=== PATIENT | male | born 1950 | race Caucasian/White ===

== ENCOUNTER 2019-11-02 14:27 | Outpatient (CLI) | payer OTHER, SELFPAY ==
--- NOTE | ~2019-11-02 | CT_ITS ---
EXAMINATION: CT abdomen pelvis wo con EXAM DATE: 11/02/2019 15:22 INDICATION: Abdominal pain, benign essential microscopic hematuria. TECHNIQUE: Spiral CT of the abdomen and pelvis was performed without contrast. Axial, coronal and s agittal images were reviewed. The dose-length product (DLP) for this examination was 925.77 mGy-cm. The exposure was tailored according to patient size (auto mA exposure control), and iterative recons truction (ASIR) was used as additional dose reduction technique. There is no prior study for compari son. FINDINGS: There is mild hepatic steatosis. Adrenal glands, pancreas, spleen are unremarkable. Gallbl adder is unremarkable. No biliary obstruction. There is a 4 mm stone in the mid aspect of the right ureter causing mild right-sided hydronephrosis and perinephric fat stranding. There are 4 other smal ler right calyceal stones and 6 smaller left calyceal stones. There is mild prostatomegaly. The camila dder is unremarkable. There is no retroperitoneal or pelvic lymphadenopathy. There is mild scatter ed arteriosclerotic disease. Small bilateral inguinal fat-containing hernias. Nonspecific delmar mesen jessica appearance without mass or lymphadenopathy. The appendix is normal. The stomach and small bowel are unremarkable. There is moderate sigmoid colo roxana diverticulosis. There is no adjacent inflammatory change to suggest diverticulitis. No free int raperitoneal gas. The heart is normal in size. There are no pericardial or pleural effusions. The re is 5 mm right middle lobe nodule on image 8. Some other linear basilar regions of scarring/atelect asis. There are no osteoblastic or osteolytic lesions identified. There is right femoral intramedull hetal raul. IMPRESSION: 1. Right mid ureteral 4 mm stone, mild obstructive nephropathy. 2. Lateral nephrolithiasis. 3. Moderate sigmoid diverticulosis. 4. Hepatic steatosis. 5. Right middle lobe 5 mm nodule statistically most likely postinfectious. Consider 6-12 month follo w-up low-dose chest CT. Reviewed, dictated and finalized at location A. OLL ACCOUNTING CLERK IMPRESSION: 1. Right mid ureteral 4 mm stone, mild obstructive nephropathy. 2. Lateral nephrolithiasis. 3. Moderate sigmoid diverticulosis. 4. Hepatic steatosis. 5. Right middle lobe 5 mm nodule statistically most likely postinfectious. Con maternity nurse 6-12 month follow-up low-dose chest CT.
== END 2019-11-02 14:28 | disposition home or self-care (01) ==
LOC: ANHIMG 14:35
PROVIDERS: PCP Internal Medicine; Visit Provider Nurse Practitioner Family
DX: R10.9 Unspecified abdominal pain (principal); R31.1 Benign essential microscopic hematuria; N20.2 Calculus of kidney with calculus of ureter; K57.30 Diverticulosis of large intestine without perforation or abscess without bleeding; K76.0 Fatty (change of) liver, not elsewhere classified; R91.1 Solitary pulmonary nodule
CPT/HCPCS: 74176

== ENCOUNTER 2019-11-06 11:17 | Outpatient (CLI) | payer OTHER, SELFPAY ==
--- NOTE | ~2019-11-06 | XR_ITS ---
EXAMINATION: XR abdomen/kub 1V DATE: 11/06/2019 11:48 INDICATION: Right ureteral stone TECHNIQUE: A supine view of the abdomen on 2 radiographs was obtained. COMPARISON: CT dated 11/02/2019 and 11/06/2019 FINDINGS: A few small stones are seen projecting over the lower pole of the left kidney. Stones seen on CT in t he right kidney are not clearly visualized likely obscured by superimposed stool and gas in the colon . The stone in the mid right ureter is not clearly visualized likely projecting over the region of a pseudoarthrosis between the right side of the sacralized L5 segment and the right sacral ala. More cl early visualized riblets as seen in the left hemipelvis. No dilated bowel to suggest obstruction. Vis ualized lung bases are clear. IMPRESSION: 1. A few of the small stones in the left kidney are visible on the plain radiograph. Stones in the ri ght kidney and right ureter seen on prior and subsequent CT studies are unable to be definitively erin ntified. Reviewed, dictated and finalized at location A. STANT PROFESSOR OF MARINE BIOLOGY IMPRESSION: 1. A few of the small stones in the left kidney are visible on the plain radiog raph. Stones in the right kidney and right ureter seen on prior and subsequent CT studies are unable to be definitively identified.
--- NOTE | ~2019-11-06 | CT_ITS ---
EXAMINATION: CT abdomen pelvis wo con DATE: 11/06/2019 12:13 INDICATION: Right ureteral stone. TECHNIQUE: Computed tomography (CT) of the abdomen and pelvis was performed without intravenous contr ast. Automated exposure control and iterative reconstruction technique were employed. The dose-length product was 978.62 mGy-cm. COMPARISON: CT abdomen and pelvis 11/02/2019 FINDINGS: The visualized portions of the lung bases demonstrate mild atelectasis. There is a 6 mm nod ule in right middle lobe. There are 4 mm and 4 mm nodules in right lower lobe. There is a 7 mm nodule at right major fissure. No pleural effusion. The heart size is normal. There are coronary artery meliza cifications. No pericardial effusion. There is diffuse hepatic steatosis. The gallbladder, spleen, pa ncreas, and adrenal glands are normal. There are 4 stones in right kidney measuring up to 3 mm. There is mild right hydronephrosis and hydroureter. There is a 4 mm stone in proximal right ureter. There is a 12 mm mass of left kidney upper pole measuring soft tissue attenuation. There is a 7 mm cyst in left kidney. There are 7 stones in left kidney measuring up to 3 mm. The prostate is moderately enlar ged. There is diverticulosis of the colon without evidence of diverticulitis. The appendix is normal. Again seen is fat stranding at the root of the small bowel mesentery, which may be edema or inflamma tion. There are no pathologically enlarged lymph nodes. There is no free intraperitoneal fluid. There is severe lumbar spondylosis and mild thoracic spondylosis. IMPRESSION: 1. 4 mm stone in proximal right ureter with mild right hydronephrosis and hydroureter. 2. Bilateral nonobstructing kidney stones. 3. 12 mm left kidney mass, which may be a hemorrhagic cyst or less likely a solid neoplasm. Abdomen C T without and with contrast is recommended. 4. Small pulmonary nodules, probably benign. Noncontrast low-dose chest CT is recommended in 6 months . 5. Fat stranding at the root of the small bowel mesentery, which may be edema or inflammation (mesent sherice panniculitis). Reviewed, dictated and finalized at location A. UNITY EDUCATION SPECIALIST IMPRESSION: 1. 4 mm stone in proximal right ureter with mild right hydronephrosis and hydro ureter. 2. Bilateral nonobstructing kidney stones. 3. 12 mm left kidney mass, which may be a hemorrhagic cyst or less likely a bryce id neoplasm. Abdomen CT without and with contrast is recommended. 4. Small pulmonary nodules, probably benign. Noncontrast low-dose chest CT is r ecommended in 6 months. 5. Fat stranding at the root of the small bowel mesentery, which may be edema o r inflammation (mesenteric panniculitis).
== END 2019-11-06 11:18 | disposition home or self-care (01) ==
PROVIDERS: PCP Internal Medicine; Visit Provider Urology
DX: N20.2 Calculus of kidney with calculus of ureter (principal); R91.8 Other nonspecific abnormal finding of lung field
CPT/HCPCS: 74018; 74176

== ENCOUNTER 2019-11-08 13:39 | Outpatient (CLI) | payer OTHER, SELFPAY ==
[2019-11-08 14:40] LABS: Add Urine Microscopic? YES; Appearance Urine Clear (Clear); Bilirubin Urine Negative (Negative); Blood Urine 2+ (Negative); Color Urine Yellow (Yellow); Glucose Urine UA Negative (Negative); Ketones Urine Negative (Negative); Leukocyte Esterase Ur Trace LEU/UL (Negative); Mucus Urine Moderate /lpf; Nitrate Urine Negative (Negative); Protein Urine Negative (Negative); RBC Urine >75 /hpf (0-2)
== END 2019-11-08 13:40 | disposition home or self-care (01) ==
LOC: ANHSURGERY 13:42
PROVIDERS: PCP Internal Medicine; Visit Provider Urology
DX: N20.0 Calculus of kidney (principal)
CPT/HCPCS: 81001

== ENCOUNTER 2019-11-10 01:23 | Day surgery (SDC) | payer OTHER, SELFPAY ==
[2019-11-08 11:03] VITALS: BMI 36.6
[2019-11-10] VITALS (8 sets, daily range): BP systolic 121–133; BP diastolic 76–86; PULSE 56–83; RESP 16–20; TEMP 36.3; O2SAT 97–100
--- NOTE | ~2019-11-10 | XR_ITS ---
EXAMINATION: XR retrograde pyelo w/stent RT DATE: 11/10/2019 11:42 INDICATION: Right ureteral stone. TECHNIQUE: 7 intraoperative fluoroscopic views of the abdomen and pelvis were obtained. I was not pre sent. Fluoroscopy exposure time was 25 seconds. COMPARISON: CT abdomen and pelvis 11/06/2019. FINDINGS: The right-sided retrograde pyelogram is unremarkable. The final images demonstrate a right internal ureteral stent in expected position. IMPRESSION: 1. Right internal ureteral stent in expected position. Reviewed, dictated and finalized at location A. OP ENGINEER
[2019-11-10] MEDS: LACTATED RINGERS 1,000 ML 30 ML IV CONT ×2 (09:20→11:47)
--- NOTE | 2019-11-10 09:56 | WPDANESEPPF ---
Anes - Initial Pre Proc Eval Procedure: Operation Date: 11/10/19 10:30 Proposed Procedures p Cystoscopy, Right Ureteroscopy, Right Retrograde Pyelogram, Right Stone Extraction, Right Stent Placement, - Renato Garner MD s Possible Holmium Laser Procedure - Renato Garner MD Date/Time: 11/10/19 09:56 Surgeon: Renato Garner MD Pre Op Diagnosis: Right Ureteral Calculus Patient Data Age: 69 Gender: M Height: 6 ft Weight: 122.7 kg Last Vital Signs Temp 36.3 C L 11/10/19 08:51 Pulse 81 11/10/19 08:51 Resp 20 11/10/19 08:51 BP 128/83 11/10/19 08:51 Pulse Ox 97 11/10/19 08:51 Allergies Allergy/AdvReac Type Severity Reaction Status Date / Time No Known Allergies Allergy Verified 11/10/19 09:27 Home Medications Medication Instructions Recorded Confirmed Type acetaminophen [Acetaminophen Extra 1,000 mg DAILY 11/08/19 11/10/19 History Strength] azelastine 1 spray INTRANASAL HS 11/08/19 11/10/19 History diclofenac sodium 75 mg PO DAILY 11/08/19 11/10/19 History fluticasone propionate [Flonase 2 spray INTRANASAL HS 11/08/19 11/10/19 History Allergy Relief] loratadine 10 mg PO DAILY 11/08/19 11/10/19 History multivitamin 1 tablet PO DAILY 11/08/19 11/10/19 History omega 9-fbo-xab-fish oil [Fish Oil] 1 cap PO DAILY 11/08/19 11/10/19 History omeprazole 20 mg PO DAILY 11/08/19 11/10/19 History tamsulosin [Flomax] 0.4 mg PO HS 11/08/19 11/08/19 History Patient hx anesthesia problems: none Family hx anesthesia problems: none PMFSH Past Medical History Medical History Enlarged prostate GERD (gastroesophageal reflux disease) Sleep apnea Surgical History Surgical History H/O sinus surgery Total knee replacement status Bilateral Knees Family History Family History Father , CHF No problems noted. Social History Social History Smoking status: Never smoker Alcohol intake: never Substance use: never Gender identity (if verbalized by the patient): Male Anes - Eval Final PreProcedure Day of Procedure 11/10/19 09:56 Patient weight: obese Heart: regular rate and rhythm Lungs: clear to auscultation Airway: Mallampati scale class II Neurological: alert and oriented Last oral intake: >/= 8 hours ASA classification: III Emergent: no Anesthetic plan: proceed Anesthesia type and monitoring: general LMA and standard monitoring Informed Consent: The patient's anesthetic plan and its attendant risks and benefits were discussed with the patient/family/POA. Questions were solicited and answers provided to the satisfaction of the patient/family/POA.
--- NOTE | 2019-11-10 10:24 | WPDHPUPDATE1 ---
History and Physical Update Update Date/Time: 11/10/19 10:24 History and Physical has been reviewed, including an updated exam of the patient. There are NO changes in the patient's condition. Risks, benefits, and alternatives have been discussed and questions answered. Patient agrees to proceed with procedure.
--- NOTE | 2019-11-10 10:33 | WPDHPUPDATE1 ---
History and Physical Update Update Date/Time: 11/10/19 10:33 History and Physical has been reviewed, including an updated exam of the patient. There are NO changes in the patient's condition. Risks, benefits, and alternatives have been discussed and questions answered. Patient agrees to proceed with procedure. Plan for cystoscopy with right retrograde, right ureteroscopy with possible holmium laser , stone extraction and stent placement.
[2019-11-10] MEDS: ceFAZolin 3 GM/D5W 100 ML 100 ML IVPB (10:41)
[2019-11-10] MEDS: LIDOCAINE HCL 2% GEL UROJET 10 ML PKG MUCOUS MEM (11:02)
--- NOTE | 2019-11-10 11:41 | PM.PROC ---
Procedure Note - Detailed Date of procedure: 11/10/19 Pre-op diagnosis: Right Ureteral Calculus Post-op diagnosis: same Procedure performed: Cystoscopy, right retrograde pyelogram, right ureteroscopy, holmium laser of right ureteral stone, right stone extraction, right ureteral stent placement 6 Wallisian contour Description of procedure: Patient was taken the operative suite. He was correctly identified. Given his prior right femur fracture he was positioned prior to getting anesthetic. He had no issues with that position. He was then prepped and draped in the usual sterile fashion. Twenty-two Wallisian scope was inserted into the bladder direct vision. He had a little prostatic calculus which was retrieved. Bladder itself showed no lesions. The right ureteral orifice was cannulated with a guidewire. We placed a rigid ureteral scope and visualized the stone but it was too large to retrieve in 1 piece. We could not get an adequate angle with the rigid scope. We thus exchanged it out for a flexible ureteral scope. Using a 270 micron fiber we lasered the stone into multiple pieces and retrieved them. Reinspection revealed no residual stones. Contrast was then injected to confirm placement of the stent. We had attempted to dilate the orifice but was unable to get a ureteral access sheath in place. Given this amount of manipulation we placed a 6 Wallisian contour stent with the proximal end coiled in the renal pelvis and distal end in the bladder. Bladder was drained. 2% viscous lidocaine was inserted into the urethra. We will plan on removing the stent in 2-3 weeks time as he is to do have a right knee surgery next week [facility] Surgeon: Renato Garner MD Drains: Yes Packing: No Pathology: yes Complications: No immediate complications Condition: stable Disposition: PACU
== END 2019-11-10 13:33 | disposition home or self-care (01) ==
PROVIDERS: PCP Internal Medicine; Visit Provider Urology
PROC: (CPT 52352; principal; 2019-11-10 10:30)
PROC: (CPT 52356; 2019-11-10 10:30)
DX: N20.1 Calculus of ureter (principal); N42.0 Calculus of prostate; N40.0 Benign prostatic hyperplasia without lower urinary tract symptoms; K21.9 Gastro-esophageal reflux disease without esophagitis; G47.30 Sleep apnea, unspecified; Z96.653 Presence of artificial knee joint, bilateral
CPT/HCPCS: 52356; 74420; 82365; 88300; A9270; C1769; C1894; C2617; J0131; J0690; J1100; J1885; J2405; J2704; J3010; J7120; Q9966

== ENCOUNTER 2020-02-21 08:45 | Outpatient (CLI) | payer OTHER, SELFPAY ==
--- NOTE | ~2020-02-21 | DEXA_ITS ---
Bone Density Report Name: Wilner Booth Age: 70 Sex: Male Ethnicity: White Date of : 1950 Indication: prior fracture; asthma or emphysema; Referring Provider: PHYSICIAN NOT ON STAFF Study: Bone densitometry was performed. Exam Date: February 21, 2020 Accession number: [id number] Bone Density: Region BMD T-score Z-score Classification AP Spine (L1-L4) 0.970 -1.1 -0.2 Osteopenia Femoral Neck (Left) 0.791 -1.0 0.2 Normal Total Hip (Left) 1.003 -0.2 0.5 Normal World Health Organization criteria for BMD impression classify patients as: Normal (T-score at or above -1.0), Osteopenia (T-score between -1.0 and -2.5), or Osteoporosis (T-score at or below -2.5). 10-year Fracture Risk: FRAX not reported because: Prior hip or vertebral fracture Previous Exams: Region Exam Age BMD T-score BMD Change BMD Change Date g/cm2 vs Baseline vs Previous AP Spine(L1-L4) 02/21/2020 70 0.970 -1.1 -0.018(-1.8%)# -0.018(-1.8%)# 10/30/2013 63 0.988 -0.9 Total Hip(Left) 02/21/2020 70 1.003 -0.2 -0.052(-4.9%)# -0.052(-4.9%)# 10/30/2013 63 1.055 0.1 *Denotes significance at 95% confidence level, LSC for AP Spine = 0.022 g/cm2, LSC for Total Hip = 0.027 g/cm2 Clinical Information Provided by Patient: Have had a previous hip or vertebral fracture Has had a low trauma fracture Has the following medical conditions: Asthma or Emphysema Patient maximum height was 72 No regular weight bearing exercise Impression: The patient has low bone mass, based on the Total Spine T-score. The patient has risk factors, including: previous fracture. No significant bone loss was observed. Discussion: INCREASED RISK OF FRACTURE DUE TO HISTORY OF LOW TRAUMA FRACTURE. The patient's previous fracture puts the patient at high risk of a future fracture. In untreated patients, the risk of osteoporotic fracture increases approximately two-fold for each 1.0 SD decrease in T-score. Low bone density is not the only risk factor for fracture; also consider factors such as patient's age, frailty or poor health, risk of falling, risk of injury, previous osteoporotic fracture, family history of osteoporosis, cigarette smoking, low body weight, etc. Not everyone with a low trauma fracture has osteoporosis; osteomalacia and other metabolic bone disorders should also be considered. Patients who have osteoporosis should be evaluated for specific diseases and conditions (secondary causes) that may cause or contribute to bone loss and fracture risk. National Osteoporosis Foundation (NOF) recommen
== END 2020-02-21 08:46 | disposition home or self-care (01) ==
PROVIDERS: Visit Provider Internal Medicine
DX: M97.8XXA Periprosthetic fracture around other internal prosthetic joint, initial encounter (principal); Z96.649 Presence of unspecified artificial hip joint; M85.88 Other specified disorders of bone density and structure, other site
CPT/HCPCS: 77080

== ENCOUNTER 2020-03-22 14:14 | Outpatient (CLI) | payer OTHER, SELFPAY ==
--- NOTE | ~2020-03-22 | CT_ITS ---
EXAMINATION: CT chest wo con DATE: 03/22/2020 14:39 INDICATION: Lung nodule. TECHNIQUE: Computed tomography (CT) of the chest was performed without intravenous contrast. The dose -length product was 326.55 mGy-cm. Automated exposure control and iterative reconstruction technique were employed. COMPARISON: Chest dated 12/17/2016 FINDINGS: Heart size normal. No significant pleural or pericardial effusion. Visualized aspects of th e upper abdomen are unremarkable. No thoracic lymphadenopathy. There is atherosclerosis of the coto ry arteries. There is a 7 mm right middle lobe nodule, image 65. There is a 4 mm right lower lobe nod ule, image 65. There is a 4 mm right lower lobe nodule, image 73. There is a 3 mm nodule in the right upper lobe, image 36. 5 mm nodule right upper lobe, image 40. No focal airspace consolidation. Mild emphysema. Mild thoracic spondylosis. IMPRESSION: 1. Multiple right-sided pulmonary nodules, largest in the right middle lobe measuring 7 mm. These nod ules are probably benign. Follow-up low dose CT chest in 6 months recommended. Reviewed, dictated and finalized at location A. IMPRESSION: 1. Multiple right-sided pulmonary nodules, largest in the right middle lobe lisa suring 7 mm. These nodules are probably benign. Follow-up low dose CT chest in 6 months recommended.
== END 2020-03-22 14:15 | disposition home or self-care (01) ==
PROVIDERS: Visit Provider Internal Medicine
DX: R92.8 Other abnormal and inconclusive findings on diagnostic imaging of breast (principal)
CPT/HCPCS: 71250

== ENCOUNTER 2020-09-23 08:44 | Outpatient (CLI) | payer OTHER, SELFPAY ==
--- NOTE | ~2020-09-23 | CT_ITS ---
EXAMINATION: CT chest wo con DATE: 09/23/2020 09:10 INDICATION: Lung nodule TECHNIQUE: Computed tomography (CT) of the chest was performed without intravenous contrast. The dose -length product (DLP) was 396.49 mGy-cm. Automated exposure control and iterative reconstruction tech Tran[employer] were employed. COMPARISON: 03/22/2020 FINDINGS: There is mild emphysema. Stable lung nodules measure up to 6 mm in the right middle lobe. N o new or suspicious pulmonary nodule is identified. The lungs are free of acute opacities. There is n o pleural effusion or pneumothorax. No pathologically enlarged thoracic lymph nodes are identified. T he heart size is normal. Calcified coronary artery stenosis is noted. There is mild thoracic spondylo sis. IMPRESSION: 1. Stable lung nodules, likely old granulomatous disease. Follow-up CT in 12-18 months is recommended . Reviewed, dictated and finalized at location A. E RECORDER IMPRESSION: 1. Stable lung nodules, likely old granulomatous disease. Follow-up CT in 12-18 months is recommended.
== END 2020-09-23 08:45 | disposition home or self-care (01) ==
LOC: ANHIMG 08:53
PROVIDERS: Visit Provider Internal Medicine
DX: R91.1 Solitary pulmonary nodule (principal)
CPT/HCPCS: 71250

== ENCOUNTER 2021-12-18 02:24 | Day surgery (SDC) | payer OTHER, SELFPAY ==
[2021-12-09 12:28] VITALS: BMI 38.0
[2021-12-18] MEDS: LACTATED RINGERS 1,000 ML 150 ML IV CONT (06:39)
[2021-12-18 07:03] VITALS: BP 134/91; PULSE 80; RESP 17; TEMP 36.4; O2SAT 98
--- NOTE | 2021-12-18 07:03 | WPDANESEPPF ---
Anes - Initial Pre Proc Eval Procedure: Operation Date: 12/18/21 07:30 Proposed Procedures p Esophagogastroduodenoscopy - Carlos Saunders MD Date/Time: 12/18/21 07:03 Surgeon: Carlos Saunders MD Pre Op Diagnosis: GERD Patient Data Age: 71 Gender: M Height: 1.83 m Weight: 128 kg Allergies Allergy/AdvReac Type Severity Reaction Status Date / Time No Known Allergies Allergy Verified 12/18/21 06:25 Home Medications Medication Instructions Recorded Confirmed Type azelastine 1 spray INTRANASAL HS 11/08/19 12/09/21 History diclofenac sodium 75 mg PO DAILY 11/08/19 12/09/21 History fluticasone propionate [Flonase 2 spray INTRANASAL HS 11/08/19 12/09/21 History Allergy Relief] loratadine [Claritin Liqui-Gel] 10 mg PO DAILY 11/08/19 12/09/21 History multivitamin 1 tablet PO DAILY 11/08/19 12/09/21 History omega 6-cxw-msp-fish oil [Fish Oil] 1 cap PO DAILY 11/08/19 12/09/21 History omeprazole 20 mg PO DAILY 11/08/19 12/09/21 History tamsulosin [Flomax] 0.4 mg PO HS 11/08/19 12/09/21 History acetaminophen 650 mg 650 mg PO Q12H PRN 12/03/21 12/09/21 History tablet,extended release apple cider gummies 1 tab-cap PO 12/03/21 History dicyclomine 10 mg capsule 10 mg PO TID 12/03/21 12/09/21 History finasteride 5 mg tablet 5 mg PO DAILY 12/03/21 12/09/21 History hyoscyamine sulfate 0.125 mg 0.125 mg SUBLINGUAL TID PRN #14 12/03/21 12/09/21 Rx sublingual tablet tablet tadalafil 5 mg tablet 5 mg PO DAILY 12/03/21 12/09/21 History Patient hx anesthesia problems: none Family hx anesthesia problems: none Results Review: All pre-operative results and documents have been reviewed as part of the pre-operative evaluation. [facility] Past Medical History Medical History (Updated 12/18/21 @ 07:03 by Peng Pham MD) Enlarged prostate GERD (gastroesophageal reflux disease) Obesity Sleep apnea Surgical History Surgical History H/O sinus surgery Total knee replacement status Bilateral Knees Family History Family History Father , CHF No problems noted. Social History Social History Smoking status: Never smoker Alcohol intake: never Substance use: never Living arrangements: with family Gender identity (if verbalized by the patient): Male Anes - Eval Final PreProcedure Day of Procedure 12/18/21 07:03 Patient weight: obese Heart: regular rate and rhythm Lungs: clear to auscultation Airway: Mallampati scale class II Neurological: alert and oriented Last oral intake: >/= 8 hours ASA classification: III Emergent: no Anesthetic plan: proceed Anesthesia type and monitoring: general GIVS and standard monitoring Results Review: All pre-operative results and documents have been reviewed as part of the pre-operative evaluation. Informed Consent: The patient's anesthetic plan and its attendant risks and benefits were discussed with the patient/family/POA. Questions were solicited and answers provided to the satisfaction of the patient/family/POA.
--- NOTE | 2021-12-18 07:29 | WPDHPUPDATE1 ---
History and Physical Update Update Date/Time: 12/18/21 07:29 History and Physical has been reviewed, including an updated exam of the patient. There are NO changes in the patient's condition. Risks, benefits, and alternatives have been discussed and questions answered. Patient agrees to proceed with procedure.
[2021-12-18 07:44] VITALS: BP 100/65; PULSE 71; RESP 21; O2SAT 92
[2021-12-18 07:54] VITALS: BP 101/70; PULSE 66; RESP 20; O2SAT 93
[2021-12-18 08:04] VITALS: BP 97/69; PULSE 63; RESP 21; O2SAT 94
== END 2021-12-18 08:13 | disposition home or self-care (01) ==
PROVIDERS: Visit Provider Internal Medicine Gastroenterology
PROC: 0DJ08ZZ Inspection of Upper Intestinal Tract, Via Natural or Artificial Opening Endoscopic (ICD-10-PCS; CPT 43235; principal; 2021-12-18 07:30)
DX: K21.9 Gastro-esophageal reflux disease without esophagitis (principal); G47.30 Sleep apnea, unspecified; N40.0 Benign prostatic hyperplasia without lower urinary tract symptoms; E66.9 Obesity, unspecified; Z68.38 Body mass index [BMI] 38.0-38.9, adult
CPT/HCPCS: 43239; 87081; J2704; J7120

== ENCOUNTER 2022-06-25 07:47 | Outpatient (CLI) | payer OTHER, SELFPAY ==
--- NOTE | 2022-06-25 08:00 | ECG_ITS ---
Measurements Intervals [place] Rate: 81 P: 38 [place]: 158 QRS: -35 QRSD: 97 T: 9 QT: 354 QTc: 412 Interpretive Statements SINUS RHYTHM LEFT AXIS DEVIATION BASELINE ARTIFACT- I, III, AVR, AVL, AVF BORDERLINE ECG NO PREVIOUS ECG AVAILABLE FOR COMPARISON Electronically Signed On 06-25-2022 10:21:28 CDT by Jignesh Santillan D.O.
[2022-06-25 08:43] LABS: Anion Gap 12 mmol/L (8-16); Blood Urea Nitrogen 19 mg/dL (9-20); Carbon Dioxide 22 mmol/L (22-30); Chloride 106 mmol/L (98-107); Estimated Glomerular Filt Rate > 60; Glucose 118 mg/dL (65-110); Potassium 4.2 mmol/L (3.4-5.0); Sodium 140 mmol/L (137-145)
[2022-06-25 08:48] LABS: INR 1.1; Prothrombin Time 13.6 Seconds (11.1-14.7)
[2022-06-25 08:49] LABS: Partial Thromboplastin Time 25.7 SECONDS (22.3-36.8)
[2022-06-25 08:51] LABS: Basophils Percent Auto 0.4 % (0.2-1.2); Eosinophils Absolute Auto 0.2 K/mm3 (0-0.3); Eosinophils Percent Auto 2.5 % (0-4.4); Hematocrit 46.9 % (42.0-52.0); Immature Granulocyte Absolute 0.03 K/mm3 (0.00-0.031); Immature Granulocyte Percent A 0.4 % (0-0.5); Lymphocytes Absolute Auto 1.25 K/mm3 (0.9-3.2); Lymphocytes Percent Auto 14.7 % (18.3-44.2); Mean Corpuscular Hemoglobin 27.9 pg (26-34); Mean Corpuscular Volume 87.2 fl (80-100); Monocytes Absolute Auto 0.6 K/mm3 (0.1-0.6); Monocytes Percent Auto 7.4 % (2.6-8.5); Neutrophils Absolute Auto 6.4 K/mm3 (1.3-6.7); Neutrophils Percent Auto 74.6 % (45.5-73.1); Platelet Count Result 225 k/mm3 (150-375); Red Blood Count 5.38 M/mm3 (4.6-6.20); Red Cell Distribution Width 15.9 % (11.5-14.5); White Blood Count 8.5 K/mm3 (4.5-10.0)
== END 2022-06-25 07:48 | disposition home or self-care (01) ==
LOC: ANHSURGERY 07:57
PROVIDERS: Visit Provider Urology
DX: Z01.818 Encounter for other preprocedural examination (principal); Z87.891 Personal history of nicotine dependence; N40.0 Benign prostatic hyperplasia without lower urinary tract symptoms
CPT/HCPCS: 36415; 80048; 85025; 85610; 85730; 87086; 93005

== ENCOUNTER 2022-06-30 00:49 | Day surgery (SDC) | payer OTHER, SELFPAY ==
--- NOTE | 2022-06-22 13:45 | PC.NURSE ---
Report to the Outpatient Waiting Room, entrance under the green pavilion located off [facility], at time __714 on date __06/30/22 . OR Time: ___914 . Time changes happen often and if your time is changed the preop area will call you the afternoon before. - You and your visitor will be asked to self-screen and do not enter if you have any COVID symptoms. - Only one visitor and NO children visitors are allowed at this time. - The patient visitor is requested to leave or wait in car when not with patient due to restrictions. - A mask is required within the hospital. Patients may have clear liquids (water, carbonated beverages, clear teas, apple juice) until 3 hours prior to surgery with a maximum of 20 ounces. - No food from midnight until time of surgery - Infants may have breast milk until 4 hours before surgery, formula 6 hours prior to surgery. - Children will be allowed to drink immediately following surgery. If applicable, please bring a bottle or sippy cup to assist with drinking. Juice, water, soda, and popsicles are readily available. For infants on formula, please bring formula the day of surgery. Pacifiers are allowed. Take the following medications with a SIP of water the morning of surgery: __NASAL SPRAY Medications to discontinue per physician _ALL VITAMINS AND SUPPLEMENTS 3 DAYS PRE OP_.DICLOFENAC PRE DR BYERS Date to take last dose_06/26/22 Please no make-up, nail bruneian, hairspray, perfume, deodorant, or body powder the day of surgery. No jewelry (including any body piercings) or valuables the day of surgery, leave them at home. Please take a shower or bath the night before, or the morning of, surgery with an antibacterial soap. Wear comfortable, loose fitting clothing. Children are encouraged to wear pajamas. - Jewelry must be removed prior to entering the operating room. Rings and piercings that are not removed may be cut off. - The hospital will not accept responsibility for valuables. - Please leave all valuables, including medications, at home the day of surgery. If you are going home after surgery, a licensed long haul truck driver must drive you home. - NO public transportation without another adult. - We recommend that an adult stay with you for 24 hours following discharge. - We also recommend that you do not drive, make important decision, drink alcoholic beverages, or take any drugs that were not prescribed by your health care provider for at least 24 hours after your discharge time. For Pediatric surgeries, we recommend two adults accompany the child home (only one inside the building at this time). Follow any additional instructions given to you from your surgeon. If you or anyone in your household have experienced Covid symptoms in the past week, please notify your surgeon or the nurse liaison at the phone number below for possible testing. Telephone instructions given to __PATIENT and asked if any additional questions and then verbalized understanding. Patient advised to call surgeon office or pre surgery nurse liaison [phone] if any additional questions.
[2022-06-22 13:55] VITALS: BMI 38.0
[2022-06-30] VITALS (17 sets, daily range): BP systolic 92–140; BP diastolic 48–87; PULSE 63–88; RESP 12–20; TEMP 35.8–36.6; O2SAT 93–100
[2022-06-30] MEDS: FAMOTIDINE 20 MG/2 ML VIAL IV PUSH (07:59)
--- NOTE | 2022-06-30 08:08 | WPDHPUPDATE1 ---
History and Physical Update Update Date/Time: 06/30/22 08:08 History and Physical has been reviewed, including an updated exam of the patient. There are NO changes in the patient's condition. Risks, benefits, and alternatives have been discussed and questions answered. Patient agrees to proceed with procedure. Proceed with transurethral resection of prostate
--- NOTE | 2022-06-30 08:09 | WPDANESEPPF ---
Anes - Initial Pre Proc Eval Procedure: Operation Date: 06/30/22 09:15 Proposed Procedures p Trans Urethral Resection Prostate - Renato Garner MD Date/Time: 06/30/22 08:09 Surgeon: Renato Garner MD Pre Op Diagnosis: BPH Patient Data Age: 72 Gender: M Height: 1.83 m Weight: 129.9 kg Allergies Allergy/AdvReac Type Severity Reaction Status Date / Time No Known Allergies Allergy Verified 06/30/22 07:54 Home Medications Medication Instructions Recorded Confirmed Type azelastine 205.5 mcg (0.15 %) 1 spray intranasal HS 11/08/19 06/30/22 History nasal spray diclofenac sodium 75 mg 75 mg PO DAILY 11/08/19 06/30/22 History tablet,delayed release fluticasone propionate 50 2 spray intranasal HS 11/08/19 06/30/22 History mcg/actuation nasal spray,suspension (Flonase Allergy Relief) loratadine 10 mg capsule (Claritin 10 mg PO DAILY 11/08/19 06/30/22 History Liqui-Gel) multivitamin 1 tablet PO DAILY 11/08/19 06/30/22 History tamsulosin 0.4 mg capsule (Flomax) 0.4 mg PO HS 11/08/19 06/30/22 History acetaminophen 650 mg 650 mg PO Q12H PRN pain 12/03/21 06/30/22 History tablet,extended release (Tylenol Arthritis Pain) finasteride 5 mg tablet (Proscar) 5 mg PO DAILY 12/03/21 06/30/22 History tadalafil 5 mg tablet 5 mg PO DAILY 12/03/21 06/30/22 History famotidine 20 mg tablet 20 mg PO DAILY 06/22/22 06/30/22 History pantoprazole 40 mg tablet,delayed 40 mg PO DAILY 06/22/22 06/30/22 History release ECG: Date of Service: 06/25/22 Procedure(s): CA 12 lead EKG Accession Number(s): [id number] cc: ~ ? Measurements Intervals? [place]? Rate: ? 81 ? P:? 38 [place]: ? 158? QRS:? -35 QRSD: ? 97 ? T:? 9 QT: ? 354? QTc:? 412? Interpretive Statements SINUS RHYTHM LEFT AXIS DEVIATION BASELINE ARTIFACT- I, III, AVR, AVL, AVF BORDERLINE ECG NO PREVIOUS ECG AVAILABLE FOR COMPARISON Electronically Signed On 06-25-2022 10:21:28 CDT by Jignesh Santillan D.O. Patient hx anesthesia problems: none Family hx anesthesia problems: none Results Review: All pre-operative results and documents have been reviewed as part of the pre-operative evaluation. [facility], [facility] Past Medical History Medical History (Updated 12/18/21 @ 07:03 by Peng Pham MD) Enlarged prostate GERD (gastroesophageal reflux disease) Obesity Sleep apnea Surgical History Surgical History H/O sinus surgery Total knee replacement status Bilateral Knees Family History Family History Father , CHF No problems noted. Social History Social History Smoking packs per day: 1 Smoking cigarettes per day: 20.0 Years smoked: 20 Smoking pack-years: 20.00 Smoking status: Never smoker Tobacco type: cigarettes Smoking end date: 10/04/69 Alcohol intake: never Substance use: never Living arrangements: with family Gender identity (if verbalized by the patient): Male Spiritual care concerns: No Anes - Eval Final PreProcedure Day of Procedure 06/30/22 08:09 Patient weight: obese Heart: regular rate and rhythm Lungs: clear to auscultation Airway: Mallampati scale class II Neurological: alert and oriented Last oral intake: >/= 8 hours ASA classification: III Emergent: no Anesthetic plan: proceed Anesthesia type and monitoring: general LMA and standard monitoring Results Review: All pre-operative results and documents have been reviewed as part of the pre-operative evaluation. Informed Consent: The patient's anesthetic plan and its att
[2022-06-30] MEDS: LACTATED RINGERS 1,000 ML 30 ML IV CONT (08:55)
[2022-06-30] MEDS: ceFAZolin 3 GM/D5W 100 ML 100 ML IVPB (09:02)
[2022-06-30] MEDS: LIDOCAINE HCL 2% GEL UROJET 10 ML PKG MUCOUS MEM (09:30)
--- NOTE | 2022-06-30 09:59 | P.OP_ITS ---
Procedure Note - Detailed Date of Procedure 06/30/22 Pre-op Diagnosis BPH Post-op Diagnosis Same Procedure Performed Transurethral resection of prostate Surgeon Renato Garner MD Anesthesia General Description of Procedure Patient is taken to the operative suite correctly identified. Once anesthesia was obtained was placed in dorsal lithotomy position and prepped draped usual sterile fashion. Twenty-four Algerian scope inserted the bladder. There was no tumors noted. Both ureteral orifices were visualized at all times of the case. Prostate was then resected from the bladder neck to the verumontanum. Hemostasis was achieved using electrocautery. Chips were retrieved and sent for path review. 2% viscous lidocaine was inserted into the urethra. Twenty- four Algerian [address] was placed with 30 cc in the balloon. This was connected to continuous bladder irrigation. Patient is taken recovery stable condition. Estimated Blood Loss 50 Drains Yes Packing No Pathology Yes Complications No immediate complications Condition Stable Disposition PACU
[2022-06-30] MEDS: fentaNYL CITRATE INJ (*CRX) 100 MCG/2 ML VIAL 25 MCG IV PUSH ×5 (11:06→12:08)
[2022-06-30 11:44] LABS: EDCOVIDSCREEN Negative (Negative)
--- NOTE | 2022-06-30 13:03 | ADMGEN ---
This patient, Wilner Booth Jr., was admitted to [facility] Surg Room 312-01. Patient/family oriented to hospital policies and general routines including ID bracelet, bed and alarms, visiting hours, pain management, procedures, bathroom and other care routines, personal items, smoking policy, room service/diet, and visiting hours. Information on how to activate the Rapid Response Team has been discussed. Patient/Family are encouraged to report perceived risks to care and to ask questions if they do not understand what they are told or what they should do.
[2022-06-30] MEDS: DEXTROSE 5%/LACTATED RINGERS 1,000 ML 125 ML IV CONT (13:19)
[2022-06-30] MEDS: HYOSCYAMINE SULFATE 0.125 MG TABLET SUBLINGUAL (13:24)
[2022-06-30] MEDS: DOCUSATE SODIUM 100 MG CAPSULE PO (18:06)
[2022-06-30] MEDS: ONDANSETRON INJ 4 MG/2 ML VIAL IV PUSH (18:07)
[2022-07-01] VITALS: BP 130/74; PULSE 74; RESP 18; TEMP 36.6; O2SAT 100
[2022-07-01 04:00] VITALS: BP 116/70; PULSE 67; RESP 18; TEMP 36.1; O2SAT 95
--- NOTE | 2022-07-01 05:07 | PC.NURSE ---
Pt very pleasant demeanor. Pt complinat with care. Pt on CBI. Pt has had 3 new bags placed over night. Pt stated that the catheter was bothering him a little bit. Pt asked for something to help sleep. Martine was called, but pt is not on her service. Pt requested that I not call Dr. Garner. Pt stated that he would be alright and just try to go to sleep on his own. Pt was reassured that it was not trouble, pt pt continued to refuse. Pt has no other complaints at this time. Will continue to monitor pt.
[2022-07-01 06:22] LABS: Anion Gap 14 mmol/L (8-16); Blood Urea Nitrogen 16 mg/dL (9-20); Carbon Dioxide 25 mmol/L (22-30); Chloride 100 mmol/L (98-107); Estimated CRCL calculation 80 ml/min; Estimated Glomerular Filt Rate > 60; Glucose 165 mg/dL (65-110); Potassium 3.9 mmol/L (3.4-5.0); Sodium 139 mmol/L (137-145)
[2022-07-01 06:24] LABS: Hematocrit 43.8 % (42.0-52.0); Hemoglobin 13.8 g/dL (14.0-18.0)
[2022-07-01 08:00] VITALS: BP 136/80; PULSE 70; RESP 16; TEMP 36.5; O2SAT 97
[2022-07-01] MEDS: DOCUSATE SODIUM 100 MG CAPSULE PO (08:38)
[2022-07-01] MEDS: CEPHALEXIN 500 MG CAPSULE PO ×2 (08:38→12:39)
[2022-07-01] MEDS: LORATADINE 10 MG TABLET PO (08:38)
--- NOTE | 2022-07-01 08:59 | WPDANESPN ---
Anes - Prog Note Post-Op Date/Time: 07/01/22 08:59 Cardiovascular status: normal Respiratory status: normal Airway patency: baseline Mental status: baseline Post-Op hydration status: normal Vital Signs: Last Vital Signs Temp 97.7 F 07/01/22 08:00 Pulse 70 07/01/22 08:00 Resp 16 07/01/22 08:00 BP 136/80 07/01/22 08:00 Pulse Ox 97 07/01/22 08:00 O2 Del Method Room Air 07/01/22 07:58 O2 Flow Rate 8 06/30/22 10:15 Pain Score (VAS): 0/10 I/O: Intake & Output 06/30/22 07/01/22 07/01/22 23:59 07:59 15:59 Intake Total 500 50 480 Output Total 550 Balance -50 50 480 Laboratory Tests 07/01/22 05:22 07/01/22 05:23 06/30/22 07/01/22 07/01/22 11:22 05:22 05:23 Hgb 13.8 L Hct 43.8 Sodium 139 Potassium 3.9 Chloride 100 Carbon Dioxide 25 Anion Gap 14 BUN 16 Creatinine 1.00 Estim Creat Clear Calc 80 Estimated GFR > 60 Glucose 165 H Calcium 9.0 SARS-CoV-2 IgG/IgM Ag?Rapid Negative Post-procedural complaints: none Patient Feedback: Patient satisfied with anesthetic care.
[2022-07-01 12:00] VITALS: BP 138/80; PULSE 70; RESP 16; TEMP 36.4; O2SAT 98
--- NOTE | 2022-07-01 12:02 | WPDUROPN2 ---
Progress Note: A&P Assessment and Plan (1) BPH (benign prostatic hyperplasia): Code(s): N40.0 - Benign prostatic hyperplasia without lower urinary tract symptoms Status: Acute Assessment and Plan: Ok to discharge home with oseguera catheter. Subjective Subjective Date/Time Seen: 07/01/22 12:02 The patient is s/p TURP with Dr. Garner yesterday. He is doing very well today and urine remains clear yellow off of CBI. He is tolerating pain and diet well. He is able to get up and sit in his chair in the room and ambulate. Post Op day: 1 Review of Systems Cardiovascular: Cardiovascular: Denies chest pain Respiratory: Respiratory: Reports no additional respiratory complaints Gastrointestinal: Gastrointestinal: Denies abdominal pain, Denies nausea and Denies vomiting Genitourinary: Genitourinary: Denies hematuria, Denies dysuria, Denies flank pain, Denies urinary frequency, Denies urinary incontinence and Denies urinary urgency Exam Const: General: cooperative Resp: Effort & Inspection: normal respiratory effort Cardio: Rate: regular rate GI: GI Palp: Yes Soft to palpation and No Tenderness to palpation present (GI) : General: Yes no CVA tenderness Urinary Catheter: Urinary Catheter: patent and draining and urine clear Back/Spine/Pelvis: Back: CVA tenderness Extrem: Right lower extremity: no edema Left lower extremity: no edema Objective Data Vital Signs Vital Signs: Vital Signs - 24 hr 06/30/22 12:15 06/30/22 12:30 06/30/22 13:10 Temperature 96.6 F L Pulse Rate 66 68 70 Respiratory Rate 14 14 20 Blood Pressure 107/75 111/80 100/75 Pulse Oximetry 95 95 96 Oxygen Delivery Room Air Room Air 06/30/22 13:25 06/30/22 13:55 06/30/22 14:55 Temperature 96.4 F L 97.3 F L 97.1 F L Pulse Rate 77 70 70 Respiratory Rate 20 20 20 Blood Pressure 130/80 140/87 120/70 Pulse Oximetry 93 98 96 Oxygen Delivery 06/30/22 20:38 06/30/22 21:59 07/01/22 00:00 Temperature 97.2 F L 97.8 F Pulse Rate 82 74 Respiratory Rate 18 18 Blood Pressure 130/74 130/74 Pulse Oximetry 96 100 Oxygen Delivery Room Air 07/01/22 04:00 07/01/22 07:58 07/01/22 08:00 Temperature 97 F L 97.7 F Pulse Rate 67 70 Respiratory Rate 18 16 Blood Pressure 116/70 136/80 Pulse Oximetry 95 97 Oxygen Delivery Room Air Intake/Output Intake/Output: Intake & Output 06/28/22 06/29/22 06/30/22 07/01/22 23:59 23:59 23:59 23:59 Intake Total 3900 530 Output Total 5350 Balance -1450 530 Meds/Results Medications: Active Medications Generic Name Dose Route Start Last Admin Trade Name Freq PRN Reason Stop Dose Admin Hydrocodone Bitart/Acetaminophen 1 tab 06/30/22 12:38 Hydrocodone/Acetaminophen (*Crx) 5-325 Mg Tablet PO Q4H PRN Pain Rated 1-6 Cephalexin HCl 500 mg 07/01/22 09:00 07/01/22 08:38 Cephalexin 500 Mg Capsule PO 500 mg QID ESTEFANIA Administration Docusate Sodium 100 mg 06/30/22 17:00 07/01/22 08:38 Docusate Sodium 100 Mg Capsule PO 100 mg BID ESTEFANIA Administration Hyoscyamine 0.125 mg 06/30/22 12:38 06/30/22 13:24 Hyoscyamine Sulfate 0.125 Mg Tablet SUBLINGUAL 0.125 mg Q6H PRN Administration Bladder Spasm Loratadine 10 mg 07/01/22 09:00 07/01/22 08:38 Loratadine 10 Mg Tablet PO 10 mg DAILY ESTEFANIA Administration Morphine Sulfate 2 mg 06/30/22 12:38 Morphine Sulfate (*Crx) 2 Mg/Ml Inj IV PUSH Q2H PRN Pain Rated 7-10 Naloxone HCl 0.1 mg 06/30/22 12:38 Naloxone Hcl 0.4 Mg/Ml Vial IV PUSH Q2M PRN Opiate Reversal Ondansetron HCl 4 mg 06/30/22 12:38 06/30/22 18:07 Ondansetron Inj 4 Mg/2 Ml Vial IV PUSH 4 mg Q12H PRN Administration Nausea And Vomiting Labs Labs: Laboratory Results - last 24 hr 07/01/22 07/01/22 05:22 05:23 Hgb 13.8 L Hct 43.8 Sodium 139 Potassium 3.9 Chloride 100 Carbon Dioxide 25 Anion Gap 14 BUN 16 Creatinine 1
== END 2022-07-01 13:20 | disposition home or self-care (01) ==
LOC: ANHSURGERY 07:09 → ANH3MEDSUR 12:40
PROVIDERS: Visit Provider Urology
PROC: 0VT08ZZ Resection of Prostate, Via Natural or Artificial Opening Endoscopic (ICD-10-PCS; CPT 52601; principal; 2022-06-30 09:15)
DX: N40.1 Benign prostatic hyperplasia with lower urinary tract symptoms (principal); R35.1 Nocturia; R39.12 Poor urinary stream; K21.9 Gastro-esophageal reflux disease without esophagitis; G47.30 Sleep apnea, unspecified; E66.9 Obesity, unspecified; Z68.38 Body mass index [BMI] 38.0-38.9, adult
CPT/HCPCS: 52601; 36415; 80048; 85014; 85018; 85025; 85610; 85730; 87086; 87426; 88305; 93005; A9270; C9803; J0690; J1100; J2405; J2704; J3010; J7120; J7121

== ENCOUNTER 2022-07-03 13:30 | Emergency (ER) | payer OTHER, SELFPAY ==
[2022-07-03 13:32] VITALS: BP 164/82; PULSE 107; RESP 20; TEMP 36.2; O2SAT 100
--- NOTE | 2022-07-03 14:06 | ED.MALEGU ---
HPI - Male Genitourinary General Chief complaint: Urogenital-Male Stated complaint: swelling to penis Time Seen by Provider: 07/03/22 13:59 Source: patient Mode of arrival: ambulatory Limitations: no limitations History of Present Illness HPI Narrative: 72 years old white male status post TURP 4 days ago. Patient been not able to and retract the foreskin since his surgery until now. Woke up this morning with swelling of the foreskin at the bottom of the penis. He denies any fever, chills, nausea, vomiting. Related Data Home Medications Medication Instructions Recorded Confirmed azelastine 205.5 mcg (0.15 %) 1 spray intranasal HS 11/08/19 06/30/22 nasal spray diclofenac sodium 75 mg 75 mg PO DAILY 11/08/19 06/30/22 tablet,delayed release fluticasone propionate 50 2 spray intranasal HS 11/08/19 06/30/22 mcg/actuation nasal spray,suspension (Flonase Allergy Relief) loratadine 10 mg capsule (Claritin 10 mg PO DAILY 11/08/19 06/30/22 Liqui-Gel) multivitamin 1 tablet PO DAILY 11/08/19 06/30/22 tamsulosin 0.4 mg capsule (Flomax) 0.4 mg PO HS 11/08/19 06/30/22 acetaminophen 650 mg 650 mg PO Q12H PRN pain 12/03/21 06/30/22 tablet,extended release (Tylenol Arthritis Pain) finasteride 5 mg tablet (Proscar) 5 mg PO DAILY 12/03/21 06/30/22 tadalafil 5 mg tablet 5 mg PO DAILY 12/03/21 06/30/22 famotidine 20 mg tablet 20 mg PO DAILY 06/22/22 06/30/22 pantoprazole 40 mg tablet,delayed 40 mg PO DAILY 06/22/22 06/30/22 release Allergies Allergy/AdvReac Type Severity Reaction Status Date / Time No Known Allergies Allergy Verified 06/30/22 07:54 Review of Systems Review of Systems: All systems reviewed & are unremarkable except as noted in HPI and below PMFSH Past Medical History Medical History Enlarged prostate GERD (gastroesophageal reflux disease) Obesity Sleep apnea Surgical History Surgical History H/O sinus surgery Total knee replacement status Bilateral Knees Family History Family History Father , CHF No problems noted. Social History Social History Smoking packs per day: 1 Smoking cigarettes per day: 20.0 Years smoked: 13 Smoking pack-years: 13.00 Smoking status: Former smoker Alcohol intake: never Substance use: never Gender identity (if verbalized by the patient): Male Spiritual care concerns: No Exam Narrative: General appearance: Well-developed, well-nourished Skin: Normal color Chest and respiratory: Airway patent, no respiratory distress, no accessory muscle use Heart: Regular rate/rhythm Abdomen: Soft, nontender, no organomegaly, quiet bowel sounds, genital exam showed edematous of the foreskin, unable to UN retracted Vascular: Normal peripheral pulses, normal capillary refill. Musculoskeletal: Normal range of motion, nontender back Neurologic: Alert and oriented ?3, BIT SHARPENER is normal as tested, no gross motor deficit Course Reevaluation(s) Reevaluation #1: Dr. Garner came to the emergency room and was able to manage to squeeze the edematous foreskin and pull it on the glans with success. Patient feels much better and ready to go home Date: 07/03/22 Time: 14:31 Vital Signs Vital signs: Vital Signs Temperature 36.2 C L 07/03/22 13:32 Pulse Rate 107 H 07/03/22 13:32 Respiratory Rate 20 07/03/22 13:32 Blood Pressure 164/82 H 07/03/22 13:32 Pulse Oximetry 100 07/03/22 13:32 Temperature 36.2 C L 07/03/22 13:32 Pulse Rate
--- NOTE | 2022-07-03 14:21 | WPDURCON ---
Assessment and Plan Assessment and plan (1) Paraphimosis: Code(s): N47.2 - Paraphimosis Status: Acute Assessment and Plan: Paraphimosis was reduced at the bedside and the foreskin was pulled over the head of the penis. I instructed him to keep a close eye on this. He can apply some ice when he gets home. He will continue with this Bowser catheter removal on Wednesday next week. Urology Consult Note HPI Date Seen: 07/03/22 Time Seen: 14:21 Requesting Physician: The emergency room Primary Care Provider: Faustino Boo, Consult Narrative Reason for consult: Penile swelling Narrative: Wilner Booth Jr. is a 72 year old male who is known to me and had a transurethral section of his prostate on Wednesday of last week. Patient is uncircumcised then developed some swelling this morning. He was concerned and came to the emergency room. He currently has an indwelling Bowser catheter draining pinkish colored urine. Denies any fevers chills nausea vomiting. Review of Systems Review of Systems: All systems reviewed & are unremarkable except as noted in HPI and below PMFSH Past Medical History Medical History Enlarged prostate GERD (gastroesophageal reflux disease) Obesity Sleep apnea Surgical History Surgical History H/O sinus surgery Total knee replacement status Bilateral Knees Family History Family History Father , CHF No problems noted. Social History Social History Smoking packs per day: 1 Smoking cigarettes per day: 20.0 Years smoked: 13 Smoking pack-years: 13.00 Smoking status: Former smoker Alcohol intake: never Substance use: never Gender identity (if verbalized by the patient): Male Spiritual care concerns: No Meds Home Medications and Allergies Home Medications Medication Instructions Recorded Confirmed Type azelastine 205.5 mcg (0.15 %) 1 spray intranasal HS 11/08/19 06/30/22 History nasal spray diclofenac sodium 75 mg 75 mg PO DAILY 11/08/19 06/30/22 History tablet,delayed release fluticasone propionate 50 2 spray intranasal HS 11/08/19 06/30/22 History mcg/actuation nasal spray,suspension (Flonase Allergy Relief) loratadine 10 mg capsule (Claritin 10 mg PO DAILY 11/08/19 06/30/22 History Liqui-Gel) multivitamin 1 tablet PO DAILY 11/08/19 06/30/22 History tamsulosin 0.4 mg capsule (Flomax) 0.4 mg PO HS 11/08/19 06/30/22 History acetaminophen 650 mg 650 mg PO Q12H PRN pain 12/03/21 06/30/22 History tablet,extended release (Tylenol Arthritis Pain) finasteride 5 mg tablet (Proscar) 5 mg PO DAILY 12/03/21 06/30/22 History tadalafil 5 mg tablet 5 mg PO DAILY 12/03/21 06/30/22 History famotidine 20 mg tablet 20 mg PO DAILY 06/22/22 06/30/22 History pantoprazole 40 mg tablet,delayed 40 mg PO DAILY 06/22/22 06/30/22 History release cephalexin 500 mg capsule 500 mg PO BID #10 caps 07/01/22 Rx docusate sodium 100 mg capsule 100 mg PO BID #10 caps 07/01/22 Rx hydrocodone 5 mg-acetaminophen 325 1 tablet PO Q6H PRN pain #20 tabs 07/01/22 Rx mg tablet hyoscyamine sulfate 0.125 mg 0.125 mg sublingual Q6H PRN 07/01/22 Rx disintegrating tablet (Anaspaz) Bladder Spasm #20 tabs Allergies Allergy/AdvReac Type Severity Reaction Status Date / Time No Known Allergies Allergy Verified 06/30/22 07:54 Vital Signs Vital Signs - 24 hr 07/03/22 13:32 Temperature 36.2 C L Pulse Rate 107 H Respiratory Rate 20 Blood Pressure 164/82 H Pulse Oximetry 100 Exam Const: General: cooperative; No comfortable Resp: Effort & Inspection: normal respiratory effort Cardio: Rate: regular rate Rhythm: regular rhythm : Penis: Yes circumcised and Yes paraphimosis
== END 2022-07-03 14:40 | disposition home or self-care (01) ==
PROVIDERS: Emergency Provider Emergency Medicine; PCP Internal Medicine
DX: N47.2 Paraphimosis (principal); G47.30 Sleep apnea, unspecified; K21.9 Gastro-esophageal reflux disease without esophagitis; E66.9 Obesity, unspecified; Z68.38 Body mass index [BMI] 38.0-38.9, adult; Z87.891 Personal history of nicotine dependence
CPT/HCPCS: 99283

== ENCOUNTER 2024-08-05 12:43 | Emergency (ER) | payer OTHER, SELFPAY ==
--- NOTE | ~2024-08-05 | XR_ITS ---
XR hand RT min 3V DATE: 08/05/2024 13:51 INDICATION: Fall. Right hand injury, pain TECHNIQUE: 4 views COMPARISON: None FINDINGS: There is a subtle virtually nondisplaced fracture of the neck of the fourth metacarpal bone which is likely recent. Recommend clinical correlation for tenderness at this site. No other recent fracture or any dislocation is noted. Polyarticular osteoarthritis is noted, particularly prominent at the second and third metacarpophalan geal joints, also involving the first carpometacarpal joint. IMPRESSION: Suspected recent virtually nondisplaced fracture at the fourth metacarpal; recommend clin ical correlation for tenderness at this site Polyarticular osteoarthritis Reviewed, dictated and finalized at location A. IMPRESSION: Suspected recent virtually nondisplaced fracture at the fourth meta carpal; recommend clinical correlation for tenderness at this site Polyarticular osteoarthritis
--- NOTE | ~2024-08-05 | XR_ITS ---
[id number] DATE: 08/05/2024 13:51 INDICATION: Right rib pain TECHNIQUE: PA chest. 4 views of right ribs COMPARISON: None FINDINGS: Normal heart size. No hilar or mediastinal enlargement. Minimal atelectasis or scarring at the lung bases. Mild loss of right lung volume compared to left. Otherwise no pulmonary infiltrate or consolidation. No pleural effusion or pulmonary vascular congest ion or pneumothorax. No right rib fracture or bone destruction is detected. IMPRESSION: Minimal atelectasis or scarring at the lung bases Reviewed, dictated and finalized at [facility]. Reviewed, dictated and finalized at location A.
--- NOTE | ~2024-08-05 | XR_ITS ---
XR hip RT 2V w AP pelvis DATE: 08/05/2024 13:51 INDICATION: Fall. Right hip injury, pain TECHNIQUE: AP pelvis. AP and lateral views of right hip. COMPARISON: None FINDINGS: Mild lumbar levoscoliosis. Multilevel degenerative disc disease, particularly on the right at L3-4. Transitional fifth vertebra with sacralization and pseudoarthrosis on the right, localization of the left. Normal alignment at the pubic symphysis and sacroiliac joints. No pelvic fracture or bone destruction. Lateral right iliac crest deformity, likely bone donor site No fracture or dislocation, avascular necrosis or bone destruction of the right hip is detected. Plat e and screws along right femoral shaft. IMPRESSION: No pelvic or right hip fracture or dislocation Reviewed, dictated and finalized at location A.
--- NOTE | ~2024-08-05 | CT_ITS ---
EXAMINATION: CT diagnostic chest wo con DATE: 08/05/2024 15:08 INDICATION: Concern for right anterolateral rib fracture TECHNIQUE: Computed tomography (CT) of the chest was performed without intravenous contrast. Automate d exposure control and iterative reconstruction technique were employed. Exam dose: 675.30 mGy-cm to saba exam DLP. COMPARISON: 09/23/2020 CT chest FINDINGS: Stable previously reported 6 mm middle lobe pulmonary nodule. No pulmonary infiltrate or consolidation or significant new or developing pulmonary mass lesion is ev ident. Prominent left main and left anterior descending coronary artery calcifications. Borderline heart siz e. No thoracic aortic aneurysm. No hilar or mediastinal mass lesion or lymphadenopathy. Normal morphology of the adrenal glands. Subtle recent nondisplaced anterior right seventh and eighth rib fractures are suspected. Additional subtle nondisplaced rib fractures are not excluded. No suspicious osteolytic or osteoblastic lesions are noted. IMPRESSION: Recent nondisplaced anterior right seventh and eighth rib fractures are suspected. Addit ional subtle nondisplaced rib fractures on either side are not excluded. Reviewed, dictated and finalized at [facility]. Reviewed, dictated and finalized at location A. IMPRESSION: Recent nondisplaced anterior right seventh and eighth rib fracture s are suspected. Additional subtle nondisplaced rib fractures on either side ar e not excluded.
--- NOTE | ~2024-08-05 | CT_ITS ---
EXAMINATION: CT cervical spine wo con DATE: 08/05/2024 13:30 INDICATION: Fall with head injury TECHNIQUE: Computed tomography (CT) of the cervical spine was performed without intravenous contrast. The dose-length product was 526.14 mGy-cm. COMPARISON: None FINDINGS: Alignment is normal. Vertebral body heights are normal. No fracture. Severe disc height loss at C3-C4 , C5-C6 and C6-C7. Moderate disc height loss at C2-C3 and mild disc height loss at C4-C5 and C7-T1. S mall posterior endplate osteophytes contributing to mild central canal stenosis at C3-C4, C5-C6 and C 6-C7. Moderate to severe and uncovertebral osteoarthritis at these levels along with multilevel cervi meliza facet osteoarthritis, severe on the left at C2-C3 and C3-C4 and mild to moderate the remaining le vels. This contributes to moderate neural foraminal stenosis on the right at C5-C6, on the left at C2 -C3, C3-C4 and C6-C7. Visualized portions of the cervical soft tissues are unremarkable. Mild emphyse ma and mild dependent atelectasis in the visualized upper lungs. IMPRESSION: 1. Severe cervical spondylosis. No acute osseous abnormality. Reviewed, dictated and finalized at location A.
--- NOTE | ~2024-08-05 | XR_ITS ---
XR knee RT min 4V DATE: 08/05/2024 13:51 INDICATION: Fall. Right knee injury TECHNIQUE: 4 standing views COMPARISON: None FINDINGS: Status post ORIF of distal femoral shaft fracture: Plates and screws are noted along the me dial and lateral aspect of the femoral shaft and metaphysis. Status post right knee arthroplasty without patellar resurfacing. No recent fracture or dislocation, periosteal reaction or bone destruction is detected. No joint effu yaniv is detected. IMPRESSION: Status post ORIF distal femoral shaft fracture Status post right knee arthroplasty No recent fracture or dislocation or joint effusion is detected Reviewed, dictated and finalized at location A.
--- NOTE | ~2024-08-05 | CT_ITS ---
EXAMINATION: CT brain wo con DATE: 08/05/2024 13:30 INDICATION: Fall with head injury TECHNIQUE: Computed tomography (CT) of the head was performed without intravenous contrast. Sagittal and coronal reconstructions were performed. The mA was adjusted according to patient size. Iterative reconstruction technique was employed. The dose-length product was 605.33 mGy-cm. COMPARISON: head CT dated 07/07/2016 FINDINGS: No fracture. No acute intracranial hemorrhage, acute infarction or abnormal extra axial fluid collect ion. There is mild to moderate scattered white matter hypoattenuation consistent with chronic small v essel ischemic disease. Ventricles are normal and symmetric. No mass/mass effect. Changes of bilatera l intraocular lens replacement. The orbits, paranasal sinuses and mastoid air cells are normal. IMPRESSION: 1. No fracture or acute intracranial process. 2. Mild to moderate scattered white matter hypoattenuation consistent with chronic small vessel ische janie disease. Reviewed, dictated and finalized at location A. IMPRESSION: 1. No fracture or acute intracranial process. 2. Mild to moderate scattered white matter hypoattenuation consistent with wall covering installer roxana small vessel ischemic disease.
[2024-08-05 13:06] VITALS: BP 117/74; PULSE 73; RESP 16; TEMP 36.4; O2SAT 97
[2024-08-05] MEDS: HYDROcodone/acetaminophen (*CRX) 5-325 MG TABLET 1 TAB PO (15:08)
--- NOTE | 2024-08-05 15:08 | ED_ITS ---
HPI - Fall General Chief Complaint: Fall Stated Complaint: fall, L hand injury Time Seen by Provider: 08/05/24 14:02 History of Present Illness HPI Narrative: 74-year-old male presents to the emergency department for a mechanical fall. Patient states he was walking on uneven ground when he tripped. He landed with his right hand outstretched. States he hit his head but did not lose consciousness. He is reporting pain to the right forehead, right hand, right hip and knee. He is not anticoagulated. Denies vision changes, focal numbness or weakness, neck pain or back pain. Related Data Home Medications Medication Instructions Recorded Confirmed azelastine 205.5 mcg (0.15 %) 1 spray intranasal HS 11/08/19 06/30/22 nasal spray diclofenac sodium 75 mg 75 mg PO DAILY 11/08/19 06/30/22 tablet,delayed release fluticasone propionate 50 2 spray intranasal HS 11/08/19 06/30/22 mcg/actuation nasal spray,suspension (Flonase Allergy Relief) loratadine 10 mg capsule (Claritin 10 mg PO DAILY 11/08/19 06/30/22 Liqui-Gel) multivitamin 1 tablet PO DAILY 11/08/19 06/30/22 tamsulosin 0.4 mg capsule (Flomax) 0.4 mg PO HS 11/08/19 06/30/22 acetaminophen 650 mg 650 mg PO Q12H PRN pain 12/03/21 06/30/22 tablet,extended release (Tylenol Arthritis Pain) finasteride 5 mg tablet (Proscar) 5 mg PO DAILY 12/03/21 06/30/22 tadalafil 5 mg tablet 5 mg PO DAILY 12/03/21 06/30/22 famotidine 20 mg tablet 20 mg PO DAILY 06/22/22 06/30/22 pantoprazole 40 mg tablet,delayed 40 mg PO DAILY 06/22/22 06/30/22 release Allergies Allergy/AdvReac Type Severity Reaction Status Date / Time No Known Allergies Allergy Verified 08/05/24 13:03 Review of Systems Review of Systems: All systems reviewed & are unremarkable except as noted in HPI and below PMFSH Past Medical History Medical History Enlarged prostate GERD (gastroesophageal reflux disease) Obesity Sleep apnea Surgical History Surgical History H/O sinus surgery Total knee replacement status Bilateral Knees Family History Family History Father , CHF No problems noted. Social History Social History Smoking packs per day: 1 Smoking cigarettes per day: 20.0 Years smoked: 13 Smoking pack-years: 13.00 Smoking status: Former smoker Alcohol intake: never Substance use: never Living arrangements: with family Occupation/Education: retired Gender identity (if verbalized by the patient): Male Spiritual care concerns: No Exam Narrative: GENERAL: Well-appearing, well-nourished, and in no acute distress. HEAD: Normocephalic, atraumatic. no tenderness, step-offs or deformities, no ecchymosis or lacerations EYES: PERRLA and EOMI. ENT: Nares clear, no rhinorrhea or epistaxis. Mucous membranes moist. NECK: No midline cervical spinous tenderness, step-offs or deformities CHEST: Clear to auscultation. No respiratory distress. tenderness to the right anterior lateral ribs with no overlying skin changes, crepitus, step-offs or deformities HEART: Regular rate and rhythm. No murmur heard. Normal peripheral pulses. ABDOMEN: Soft, nontender, nondistended, normal active bowel sounds. EXTREMITIES: RUE: tenderness to the 3rd through 5th metacarpals with overlying edema. Full active and passive range of motion of fingers and wrist. No tenderness to wrist, no snuffbox tenderness. No overlying laceration wounds or abrasions. Radial pulse 2 +. Cap refill less than 2. Sensation intact. RLE: Minimal tenderness to the lateral aspect of the proximal right femur and to the lateral aspect of the distal right femur. No overlying skin changes. Full active and passive range of motion of hip and knee. DP pulses 2+. Sensation intact. Compartments are soft throughout SKIN: Warm, dry, no rash. NEURO: No focal deficits. Alert and oriented x3 . Cranial nerves 2-12 intact. Strength 5/5 BUE and BLE. Sensation intact throughout. Course Vital Signs Vital signs: Vital Signs Temperature 97.5 F L 08/05/24 13:06 Pulse Rate 73 08/05/24 13:06 Respiratory Rate 16 08/05/24 13:06 Blood Pressure 117/74 08/05/24 13:06 Pulse Oximetry 97 08/05/24 13:06 Temperature 97.5 F L 08/05/24 13:06 Pulse Rate 73 08/05/24 13:06 Respiratory Rate 16 08/05/24 13:06 Blood Pressure 117/74 08/05/24 13:06 Pulse Oximetry 97 08/05/24 13:06 MDM - Fall MDM Narrative Medical decision making narrative: 74-year-old male presents to the emergency department for a ground level mechanical fall that occurred prior to arrival. See HPI for further history. Triage vitals are stable. Exam is significant for the above. He is neurovascularly intact. CT brain and cervical spine show no acute findings. X- ray of the right knee and right hip/pelvis revealed no acute findings, hardware is in place. X-ray of the ribs reveal no acute rib fracture. Patient was persistently tender over the right anterior lateral distal ribs, therefore CT chest without contrast ordered which shows nondisplaced anterior right 7th and 8th rib fractures consistent with his exam. He has no tenderness to the remainder of his ribs, therefore additional for fractures are less likely. X- ray of the hand shows a virtually nondisplaced fracture at the 4th metacarpal which is also consistent with exam. Patient updated on workup. He was given a dose of [place] in his right hand was placed in an ulnar gutter splint. He reports improvement after [place]. He remains in respiratory distress his oxygen saturation is stable at 97%. he seems to otherwise be in good health and does not appear frail. Feel he is safe to be discharged home. He was given incentive spirometer and instructed to use this frequently to prevent complications from rib fracture. I discussed close follow-up with his PCP and hand surgeon, referral provided. Strict ED return precautions were discussed. He is agreeable with the plan verbalized understanding. Discharged in stable condition. Discharge Plan Discharge Clinical Impression: Closed fracture of fourth metacarpal bone Qualifiers: Encounter type: initial encounter Metacarpal location: unspecified portion of metacarpal Fracture alignment: nondisplaced Laterality: right Qualified Code(s): S62.304A - Unspecified fracture of fourth metacarpal bone, right hand, initial encounter for closed fracture Fracture, ribs Qualifiers: Encounter type: initial encounter Fracture type: closed Laterality: right Qualified Code(s): S22.41XA - Multiple fractures of ribs, right side, initial encounter for closed fracture Patient Disposition: Home, Self-Care Condition: Stable Instructions: Antibiotic Form, How to Use an Incentive Spirometer (ED), Hand Fracture (DC), Rib Fracture (ED), Head Injury (ED) Additional Instructions: Your evaluated in the emergency department after a ground level fall. The CT of your head and neck showed no acute findings. The x-ray of your right hip and right knee showed no broken bones. The x-ray of your right hand shows a nondisplaced 4th metacarpal fracture. Please wear the splint until you are able to follow-up with the hand surgeon. The CT scan of your ribs reveal a nondisplaced fracture of your 7th and 8th rib. Please use the incentive spirometer as directed and follow-up closely with her primary care provider. Return to the emergency department if he develops significantly worsening pain your ribs or hand, white or numb fingers, fever, cough or difficulty breathing, or other concerning symptoms. Take the pain medications as directed. Prescriptions: New hydrocodone-acetaminophen 5-325 mg tablet 1 tablet PO Q8H PRN (Reason: pain) Qty: 14 0RF No Action tadalafil 5 mg tablet 5 mg PO DAILY finasteride [Proscar] 5 mg tablet 5 mg PO DAILY acetaminophen [Tylenol Arthritis Pain] 650 mg tablet extended release 650 mg PO Q12H PRN (Reason: pain) multivitamin Tablet 1 tablet PO DAILY tamsulosin [Flomax] 0.4 mg Capsule 0.4 mg PO HS Patient Comments: TAKES TWO TABS IN AM diclofenac sodium 75 mg Tablet,Delayed Release (Dr/Ec) 75 mg PO DAILY Hold Instructions: Resume on 07/06/22. fluticasone propionate [Flonase Allergy Relief] 50 mcg/actuation [facility],Suspension 2 spray INTRANASAL HS azelastine 0.15 % (205.5 mcg) [facility],Non-Aerosol 1 spray INTRANASAL HS Claritin Liqui-Gel 10 mg Capsule 10 mg PO DAILY famotidine 20 mg tablet 20 mg PO DAILY pantoprazole 40 mg tablet,delayed release (DR/EC) 40 mg PO DAILY hyoscyamine sulfate [Anaspaz] 0.125 mg Tablet,Disintegrating 0.125 mg sublingual Q6H PRN (Reason: Bladder Spasm) Qty: 20 0RF cephalexin 500 mg Capsule 500 mg PO BID Qty: 10 0RF docusate sodium 100 mg Capsule 100 mg PO BID Qty: 10 0RF hydrocodone-acetaminophen 5-325 mg tablet 1 tablet PO Q6H PRN (Reason: pain) Qty: 20 0RF Follow-up/Referrals: Hira Winters MD [Physician] - 1 Day Rajeev,Faustino Newton MD [Primary Care Provider] -
== END 2024-08-05 16:09 | disposition home or self-care (01) ==
PROVIDERS: Emergency Provider Physician Assistant; PCP Internal Medicine
DX: S62.364A Nondisplaced fracture of neck of fourth metacarpal bone, right hand, initial encounter for closed fracture (principal); S22.41XA Multiple fractures of ribs, right side, initial encounter for closed fracture; K21.9 Gastro-esophageal reflux disease without esophagitis; G47.30 Sleep apnea, unspecified; N40.0 Benign prostatic hyperplasia without lower urinary tract symptoms; E66.9 Obesity, unspecified; Z68.35 Body mass index [BMI] 35.0-35.9, adult; Z96.651 Presence of right artificial knee joint; Z87.891 Personal history of nicotine dependence; M19.041 Primary osteoarthritis, right hand; M18.9 Osteoarthritis of first carpometacarpal joint, unspecified; M47.812 Spondylosis without myelopathy or radiculopathy, cervical region; W01.0XXA Fall on same level from slipping, tripping and stumbling without subsequent striking against object, initial encounter
CPT/HCPCS: 29125; 70450; 71101; 71250; 72125; 73130; 73502; 73564; 99284; A9270

== ENCOUNTER 2024-08-25 10:23 | Outpatient (CLI) | payer OTHER, SELFPAY ==
--- NOTE | ~2024-08-25 | XR_ITS ---
EXAMINATION: XR hand RT min 3V DATE: 08/25/2024 10:44 INDICATION: Fracture of right fourth metacarpal. TECHNIQUE: 3 views of right hand were obtained. COMPARISON: Right hand radiographs 08/05/2024 FINDINGS: There is a transverse fracture of neck of fourth metacarpal. The distal fracture fragment d emonstrates 2 mm ulnar displacement, impaction, and 20 degrees ulnar angulation. There is mild osteoa rthritis of first carpometacarpal joint, first metacarpophalangeal joint and some of the interphalang eal joints. There is severe osteoarthritis of second and third metacarpophalangeal joints. IMPRESSION: 1. Transverse fracture of neck of fourth metacarpal with worsened alignment. Reviewed, dictated and finalized at location A. D EDUCATION DIRECTOR
== END 2024-08-25 10:24 | disposition home or self-care (01) ==
PROVIDERS: PCP Internal Medicine; Visit Provider Physician Assistant Surgical
DX: S62.364A Nondisplaced fracture of neck of fourth metacarpal bone, right hand, initial encounter for closed fracture (principal); X58.XXXA Exposure to other specified factors, initial encounter
CPT/HCPCS: 73130

== ENCOUNTER 2024-10-06 09:37 | Outpatient (CLI) | payer OTHER, SELFPAY ==
--- NOTE | ~2024-10-06 | XR_ITS ---
EXAMINATION: XR hand RT min 3V DATE: 10/06/2024 09:53 INDICATION: Nondisplaced fracture of the neck of the right fourth metacarpal TECHNIQUE: Posteroanterior, oblique and lateral views of the right hand were obtained. COMPARISON: 08/25/2024 FINDINGS: Again seen is an extra articular fracture at the neck of the right fourth metacarpal in unchanged ali gnment with mild ulnar displacement. No residual lucency along the fracture plane consistent with int erval healing. No other fractures identified. Alignment is otherwise normal. Polyarticular osteoarthr itis, severe at the third metacarpophalangeal joint, moderate at the second metacarpophalangeal joint and mild at the radial aspect of the carpus, the interphalangeal joints and at the remaining metacar pophalangeal joints. IMPRESSION: 1. Healing fracture of the neck of the right fourth metacarpal unchanged mild ulnar displacement. Reviewed, dictated and finalized at location B. ING PRINTER IMPRESSION: 1. Healing fracture of the neck of the right fourth metacarpal unchanged mild u lnar displacement.
== END 2024-10-06 09:38 | disposition home or self-care (01) ==
LOC: ANHIMG 09:40
PROVIDERS: PCP Internal Medicine; Visit Provider Plastic Surgery
DX: S62.364D Nondisplaced fracture of neck of fourth metacarpal bone, right hand, subsequent encounter for fracture with routine healing (principal)
CPT/HCPCS: 73130